=== PATIENT | female | born 1985 | race African-American/Black ===

== ENCOUNTER 2016-05-31 08:52 | Emergency (ER) | payer MEDICAID ==
[2016-05-31 09:38] LABS: BASOPHILS 0.3 % (0.0-2.0); EOSINOPHILS 3.7 % (0-7); HEMATOCRIT 29.8 % (36.0-48.0); HEMOGLOBIN 9.2 g/dL (12-16); IMMATURE GRANULOCYTES 0.4 % (0-5); LYMPHOCYTES 14.6 % (15-50); MCHC 30.9 g/dL (31.0-37.0); MEAN PLATELET VOLUME 9.3 fL (7.4-10.4); MONOCYTES 4.7 % (2-11); NEUTROPHILS 76.3 % (40-80); RBC 3.68 10x6/uL (4.00-5.40); RDW 17.8 % (11.5-14.5); WBC 15.9 10x3/uL (4.8-10.8)
[2016-05-31 09:53] LABS: PLATELET COUNT 655 10x3/uL (130-400)
== END 2016-05-31 12:01 | disposition home or self-care (01) ==
LOC: D.ER 08:52
PROVIDERS: Emergency Medicine
DX: L76.34 Postprocedural seroma of skin and subcutaneous tissue following other procedure (principal); L03.319 Cellulitis of trunk, unspecified; I10 Essential (primary) hypertension

== ENCOUNTER → 2019-01-19 16:08 | Outpatient (CLI) | payer MEDICAID | END | disposition home or self-care (01) | LOC: D.US 16:08 | PROVIDERS: ATTEND Obstetrics & Gynecology | DX: M79.661 Pain in right lower leg (principal) ==

== ENCOUNTER → 2019-02-17 13:31 | Outpatient (CLI) | payer MEDICAID | END | disposition home or self-care (01) | LOC: D.MRI 02-15 13:30 | PROVIDERS: ATTEND Orthopaedic Surgery | DX: S83.271A Complex tear of lateral meniscus, current injury, right knee, initial encounter (principal); X58.XXXA Exposure to other specified factors, initial encounter ==

== ENCOUNTER → 2019-03-09 13:16 | Outpatient (CLI) | payer MEDICAID | END | disposition home or self-care (01) | LOC: D.LDO 13:16 | PROVIDERS: ATTEND Obstetrics & Gynecology | DX: O36.8190 Decreased fetal movements, unspecified trimester, not applicable or unspecified (principal) ==

== ENCOUNTER 2019-04-13 10:14 | Outpatient (CLI) | payer MEDICAID ==
[~2019-04-13] VITALS: Ht 167.6 cm; Wt 109.1 kg
[2019-04-13 11:36] VITALS: BP 131/83; Ht 167.6 cm; Wt 109.1 kg
--- NOTE | 2019-04-13 12:31 | NUR ---
1155 DENIES PROBLEMS WITH TRANSFUSION, RATE INCREASED TO 225/CC/HR. PT EATING REG. DIET. 1215 ATE 80% REG DIET, DENIES PROBLEMS, PLAYING ON PHONE. CALL LIGHT AT SIDE.
--- NOTE | 2019-04-13 12:43 | NUR ---
1240 ROOM CHECK, BLOOD INFUSING AT 250/CC/HR. PT. SLEEPING.
--- NOTE | 2019-04-13 13:53 | NUR ---
1311 1ST UNIT BLOOD COMPLETED LINE BEING FLUSHED WITH NS. APPLE JUICE SERVED. 1320 2ND UNIT CHECKED AT BEDSIDE BY THIS NURSE AND GUTIERREZ ARZATE RN, INITIATED AT 50/CC/HR. 1335 NO PROBLEMS WITH TRANSFUSION, RATE INCREASED TO 250/CC/HR
--- NOTE | 2019-04-13 13:56 | NUR ---
1355 ROOM CHECK, PT. SLEEPING, BLOOD INFUSING WELL WITHOUT PROBLEMS.
--- NOTE | 2019-04-13 14:13 | NUR ---
1410 APPLE JUICE SERVED. DENIES PROBLEMS WITH TRANSFUSION.
--- NOTE | 2019-04-13 14:52 | NUR ---
1445 BLOOD HAS COMPLETED LINE FLUSHED WITH NS. LINE BEING FLUSHED.
--- NOTE | 2019-04-13 15:24 | NUR ---
1510 DENIES PROBLEMS WITH TRANSFUSION, IV DC'D WITH CATH INTACT PER DAQUAN VILLAGOMEZ RN, DC INSTS. PER DAQUAN VILLAGOMEZ RN, RELEASED AMB.
== END 2019-04-13 15:15 | disposition home or self-care (01) ==
LOC: D.OPS 10:14
PROVIDERS: ATTEND Obstetrics & Gynecology
DX: O99.019 Anemia complicating pregnancy, unspecified trimester (principal)

== ENCOUNTER → 2019-04-26 09:19 | Outpatient (CLI) | payer MEDICAID ==
[2019-04-13 11:36] VITALS: BMI 38.8
[~2019-04-26 09:19] MED LIST: AMBIEN10 MG PO; HYDROCODON-ACE1 EAC7 PO; NORMODYNE / TR100 MG; PRENAVITE1 TAB PO
[2019-04-26 10:25] LABS: BASOPHILS 0.3 % (0-2); EOSINOPHILS 5.1 % (0-7); HEMATOCRIT 35.1 % (36.0-48.0); HEMOGLOBIN 11.1 g/dL (12-16); IMMATURE GRANULOCYTES 0.3 % (0-5); LYMPHOCYTES 17.1 % (15-50); MCH 26.3 pg (26.0-34.0); MCHC 31.6 g/dL (31.0-37.0); MCV 83.2 fL (80.0-100.0); MEAN PLATELET VOLUME 9.9 fL (7.4-10.4); MONOCYTES 6.1 % (2-11); NEUTROPHILS 71.1 % (40-80); PLATELET COUNT 244 10x3/uL (130-400); RBC 4.22 10x6/uL (4.00-5.40); RDW 14.9 % (11.5-14.5); WBC 11.4 10x3/uL (4.8-10.8)
[2019-04-26 10:41] LABS: CALC OSMOLALITY 273 mosm/kg (275-300); CALCIUM 8.8 mg/dL (8.5-10.1); CARBON DIOXIDE 25.4 mmol/L (21.0-32.0); CHLORIDE - SERUM 103 mmol/L (98-107); CREATININE - SERUM 0.7 mg/dL (0.6-1.3); GLUCOSE 84 mg/dL (74-106); POTASSIUM - SERUM 3.8 mmol/L (3.5-5.1); SODIUM 138 mmol/L (136-145); UREA NITROGEN 10 mg/dL (7-18); eGFR NON AFRICAN AMERICAN > 90 mL/min (90-120)
[2019-04-26 10:47] LABS: ALBUMIN 2.8 g/dL (3.4-5.0); ALKALINE PHOSPHATASE 76 U/L (46-116); ALT (SGPT) 27 U/L (10-68); BILIRUBIN - INDIRECT 0.13 mg/dL (0.00-1.00); BILIRUBIN - TOTAL 0.15 mg/dL (0.2-1.3); PROTEIN - SERUM 6.8 g/dL (6.4-8.2); URIC ACID 4.5 mg/dL (2.6-7.2)
[2019-04-26 10:50] LABS: BILIRUBIN - DIRECT 0.02 mg/dL (0.00-0.30)
== END | disposition home or self-care (01) ==
LOC: D.LDO 09:19
PROVIDERS: ATTEND Obstetrics & Gynecology
DX: O10.919 Unspecified pre-existing hypertension complicating pregnancy, unspecified trimester (principal)

== ENCOUNTER → 2019-04-27 00:39 | Outpatient (CLI) | payer MEDICAID ==
[~2019-04-27] VITALS: Ht 167.6 cm; Wt 113.6 kg
[2019-04-27 00:48] VITALS: Ht 167.6 cm; Wt 113.6 kg
[2019-04-27 01:36] VITALS: BP 127/78
[2019-04-27 01:52] LABS: APPEARANCE CLEAR (CLEAR); BILIRUBIN NEGATIVE (NEGATIVE); COLOR YELLOW (YELLOW); GLUCOSE NEGATIVE (NEGATIVE); KETONE NEGATIVE (NEGATIVE); NITRITE NEGATIVE (NEGATIVE); PROTEIN NEGATIVE (NEGATIVE); UROBILINOGEN NORMAL (NORMAL)
[2019-04-27 01:54] LABS: BACTERIA MODERATE /hpf (NEGATIVE); EPITHELIAL CELLS 0-5 /hpf (0-5); RED CELLS - URINE 0-5 /hpf (0-5); WHITE CELLS - URINE 0-5 /hpf (NEGATIVE)
== END | disposition home or self-care (01) ==
LOC: D.LDO 00:39 → D.ER 00:39 → EDSTATUS 02:14
PROVIDERS: Family Medicine; ATTEND Obstetrics & Gynecology
DX: O26.899 Other specified pregnancy related conditions, unspecified trimester (principal); Z3A.00 Weeks of gestation of pregnancy not specified; R51 Headache